=== PATIENT | female | born 1950 | race African-American/Black ===

== ENCOUNTER 2025-05-31 20:05 | Emergency (ER) | payer OTHER ==
[~2025-05-31] VITALS: Ht 170.2 cm; Wt 88.0 kg
[2025-05-31 20:17] VITALS: TEMP 36.6; O2SAT 100
[2025-05-31 21:18] LABS: BASOPHILS % 0.4 % (0.0-2.0); EOSINOPHILS % 1.5 % (0.0-5.0); HEMATOCRIT. 37.1 % (36.0-48.0); HEMOGLOBIN. 11.9 g/dL (12.0-16.0); LYMPHOCYTES % 26.3 % (20.0-50.0); MEAN PLATELET VOLUME 7.5 fl (7.4-10.4); MONOCYTES % 4.7 % (2.0-8.0); NEUTROPHILS % 67.1 % (40.0-76.0); PLATELET 312 x1000/uL (130-400); RED BLOOD CELL COUNT 4.35 mill/uL (4.2-5.4); RED CELL DISTRIBUTION WIDTH 14.1 % (11.6-14.6)
[2025-05-31 21:30] LABS: CREATININE 1.0 mg/dL (0.6-1.0); UREA NITROGEN BLOOD 14 mg/dL (9-23)
[2025-05-31] MEDS: ONDANSETRON HCL 4MG/2ML INJ IV ONE (21:52)
[2025-05-31] MEDS: MORPHINE SULFATE 4 MG/ML INJ (FOR IV/IM USE) IV ONE (21:52)
[2025-06-01 01:49] VITALS: BP 164/77; PULSE 90; RESP 14; O2SAT 97
== END 2025-06-01 02:15 | disposition short-term general hospital (02) ==
LOC: ER 20:05 → EDBEDREQDT 06-01 01:13 → EDBEDREQ 06-01 01:13 → EDBEDREQTM 06-01 01:13 → ER 06-01 02:15 → CMPBEDREQ 06-01 16:52
DX: S42.211A Unspecified displaced fracture of surgical neck of right humerus, initial encounter for closed fracture (principal); R51.9 Headache, unspecified; W01.0XXA Fall on same level from slipping, tripping and stumbling without subsequent striking against object, initial encounter; Y93.01 Activity, walking, marching and hiking; Y92.89 Other specified places as the place of occurrence of the external cause; Y99.8 Other external cause status
CPT/HCPCS: 99285; 70450; 96374; 96375; 80048; 85025; 36415; 73030; 72125; J2405; J2270